=== PATIENT | male | born 1970 ===

== ENCOUNTER 2016-12-15 11:23 | Emergency (ER) | payer OTHER ==
[2016-12-15 12:01] VITALS: BMI 40.7
[2016-12-15 12:09] VITALS: O2SAT 98
--- NOTE | 2016-12-15 12:51 | C.PDOC ---
History Of Present Illness 46 Y/O MALE PRESENTS WITH MULTIPLE COMPLAINTS: SUBJECTIVE FEVER AND FRONTAL HEADACHE FOR 3 DAYS. DENIES CONGESTION OR SORE THROAT. DENIES HX MIGRAINE. NOTES TOOK IBUPROFEN LAST NIGHT WITH LIMITED RELIEF. PT ALSO C/O COUGH AND GENERAL MYALGIAS. SECOND COMPLAINT: PT ALSO REQUESTING EVALUATION REGARDING "ABNORMAL LABS" TAKEN 11/21/16. NOTES HE WAS CALLED TWICE REGARDING LABS, BUT WAS UNABLE FOLLOW UP. STATES HE DOES NOT KNOW WHO CALLED REGARDING LABS. DENIES HISTORY OF ASTHMA OR SMOKING. NO OTHER ASSOC SX. EXAM NEG Time Seen by Provider: 12/15/16 12:26 Chief Complaint (Nursing): Abnormal Labs History Per: Patient History/Exam Limitations: no limitations Onset/Duration Of Symptoms: Days Current Symptoms Are (Timing): Still Present Reports Recently: Treated By A Physician Recent travel outside of the [place]: No Past Medical History Reviewed: Historical Data, Nursing Documentation, Vital Signs Vital Signs: Last Vital Signs Temp 98.0 F 12/15/16 12:02 Pulse 81 12/15/16 12:02 Resp 20 12/15/16 12:02 BP 149/96 H 12/15/16 12:02 Pulse Ox 98 12/15/16 12:51 - Medical History PMH: HTN, Hypercholesterolemia Family History: States: Unknown Family Hx - Social History Hx Alcohol Use: Yes Hx Substance Use: No - Immunization History Hx Tetanus Toxoid Vaccination: No Hx Influenza Vaccination: Yes Hx Pneumococcal Vaccination: No Review Of Systems Except As Marked, All Systems Reviewed And Found Negative. Constitutional: Positive for: Fever (SUBJ.), Malaise ENT: Negative for: Throat Pain Cardiovascular: Negative for: Chest Pain, Palpitations Respiratory: Positive for: Cough. Negative for: Shortness of Breath, Wheezing Gastrointestinal: Negative for: Nausea, Vomiting, Abdominal Pain, Diarrhea Musculoskeletal: Negative for: Neck Pain Skin: Negative for: Rash Neurological: Positive for: Headache Physical Exam - Physical Exam Appears: Non-toxic, No Acute Distress Skin: Normal Color, Warm, Dry Head: Atraumatic, Normacephalic, No Tenderness Eye(s): bilateral: Normal Inspection, PERRL, EOMI Ear(s): Bilateral: Normal Nose: Normal Oral Mucosa: Moist Throat: Normal, No Erythema, No Exudate, No Drooling Neck: Supple Chest: Symmetrical Cardiovascular: Rhythm Regular, No Murmur Respiratory: Normal Breath Sounds, No Rales, No Rhonchi, No Wheezing Gastrointestinal/Abdominal: Soft, No Tenderness, No Guarding, No Rebound Back: Normal Inspection Extremity: Normal ROM, Capillary Refill (< 2 SEC. ) Neurological/Psych: Oriented x3, Normal Speech, Normal Cognition ED Course And Treatment O2 Sat by Pulse Oximetry: 98 (RA) Pulse Ox Interpretation: Normal - Radiology CXR: Interpreted by Me CXR Interpretation: Yes: No Acute Disease Progress - Re-Evaluation Re-evaluation Note: 12/15/16 12:50 TREATED WITH TYLENOL. CXR ORDERED. Disposition Counseled Patient/Family Regarding: Studies Performed, Diagnosis, Need For Followup - Disposition Referrals: [facility] [Outside] [facility] [Outside] Disposition: HOME/ ROUTINE Disposition Time: 13:43 Condition: IMPROVED Prescriptions: Acetaminophen [Tylenol Extra Strength] 2 tab PO Q6 #30 tablet Instructions: Viral Syndrome (ED), Acute Headache (ED) Forms: Work/School/Gym Excuse Print Language: JORDANIAN - Clinical Impression Clinical Impression: Headache, Viral syndrome - Scribe Statement The provider has reviewed the documentation as recorded by the Scribjose j Rizvi All medical record entries made by the Mynoribjose j were at my direction and personally dictated by me. I have reviewed the chart and agree that the record accurately reflects my personal performance of the history, physical exam, medical decision making, and the department course for this patient. I have also personally directed, reviewed, and agree with the discharge instructions and disposition.
--- NOTE | 2016-12-15 13:36 | RAD ---
HISTORY: COUGH COMPARISON: None available. TECHNIQUE: Chest PA and lateral FINDINGS: Examination limited by habitus. LUNGS: No focal consolidation. Please note that chest x-ray has limited sensitivity for the detection of pulmonary masses. PLEURA: No significant pleural effusion identified. No definite pneumothorax . CARDIOVASCULAR: Cardiomegaly. Ectatic aorta. OSSEOUS STRUCTURES: Degenerative changes. VISUALIZED UPPER ABDOMEN: Unremarkable. OTHER FINDINGS: None. IMPRESSION: No focal consolidation, significant pleural effusion, or definite pneumothorax identified.
[2016-12-15 13:55] VITALS: BP 129/84; PULSE 90; RESP 18; TEMP 99
== END 2016-12-15 13:55 | disposition home or self-care (01) ==
LOC: C.ER 11:23
DX: B34.9 Viral infection, unspecified (principal); R51 Headache
CPT/HCPCS: 71020; 96372; 99283; J1885

== ENCOUNTER 2018-09-02 10:12 | Emergency (ER) | payer OTHER ==
[2018-09-02 10:13] VITALS: BMI 34.8
[2018-09-02 10:34] VITALS: RESP 18
--- NOTE | 2018-09-02 10:50 | C.PDOC ---
History Of Present Illness 48 year old male presents to ED with complaint of persistent right forehead and samia-orbital pain s/p a fall 2 weeks ago. Patient also states he has been experiencing intermittent epistaxis from the right nare for the past week. He states he only experiences epistaxis in the morning. Patient states he accidentally fell and struck his face. He denies syncope, nausea, vomiting, vision changes, dizziness, and ear discharge. PERSIST R FOREHEAD/PERIORB PAIN SP FALL 2 WKS AGO, INTERMIT R EPISTAXIS X 1 WEEK. PS ACCID FELL AND STRUCK FACE. NO LOC, NV, VISION CHANGE, DIZZINESS. R EPISTAXIS ONLY IN MORNING. NO EAR DISCHARGE. EXAM NAD HEENT EOMI; NOSE CLEAR NO ACTIVE BLEED, HEMATOMA; EARS WNL; HEALING ABRASION R PERIORB; NO FACIAL SWELL, DEFORM. MIN TEND LAT 1/3 R EYEBROW NECK SUPPLE NEURO INTACT GAIT WNL - HPI Time Seen by Provider: 09/02/18 10:41 Chief Complaint (Nursing): Trauma History Per: Patient History/Exam Limitations: no limitations Onset/Duration Of Symptoms: Other (2 weeks) Location Of Injury: Right: Head (forehead and samia-orbital area) - Fall Fall:Prior To Injury: Tripped Past Medical History Reviewed: Historical Data, Nursing Documentation, Vital Signs Vital Signs: Last Vital Signs Temp 97.9 F 09/02/18 10:28 Pulse 57 L 09/02/18 10:28 Resp 18 09/02/18 10:28 BP 164/86 H 09/02/18 10:28 Pulse Ox 97 09/02/18 10:28 - Medical History PMH: Asthma, HTN, Hypercholesterolemia Surgical History: No Surg Hx Family History: States: Unknown Family Hx - Social History Hx Alcohol Use: Yes Hx Substance Use: No - Immunization History Hx Tetanus Toxoid Vaccination: No Hx Influenza Vaccination: No Hx Pneumococcal Vaccination: No Review Of Systems Constitutional: Positive for: Other (right sided forehead/periorbital pain). Negative for: Fever, Chills, Weakness Eyes: Negative for: Vision Change ENT: Positive for: Other (epistaxis from the right nare). Negative for: Ear Discharge Gastrointestinal: Negative for: Nausea, Vomiting Musculoskeletal: Negative for: Back Pain Neurological: Negative for: Weakness, Numbness, Dizziness Physical Exam - Physical Exam Appears: Well, Non-toxic, No Acute Distress Head: Atraumatic, Normacephalic, Tenderness (mild tenderness to lateral 1/3 right eyebrow), No Swelling, Abrasion (healing abrasion on the right periorbital), No Other (deformity) Eye(s): bilateral: EOMI Ear(s): Bilateral: Normal Nose: Normal, No Epistaxis, No Septal Hematoma Neck: Normal ROM, Supple Chest: Symmetrical, No Deformity Cardiovascular: Rhythm Regular, Murmur Respiratory: No Accessory Muscle Use, No Rales, No Rhonchi, No Wheezing, Other (NARD) Gastrointestinal/Abdominal: Soft, No Tenderness Extremity: Capillary Refill (<2 seconds) Extremity: Bilateral: Atraumatic, Normal Color And Temperature Pulses: Left Radial: Normal, Right Radial: Normal Neurological/Psych: Oriented x3, Normal Speech, Normal Cognition Gait: Steady (WNL) ED Course And Treatment O2 Sat by Pulse Oximetry: 97 (RA) - CT Scan/US Maxillofacial CT Other Rad Studies (CT/US): Interpreted By Me, Read By Radiologist CT/US Interpretation: Accession No. : [id number]. Patient Name / ID : DECLAN TYSON / [id number]. Exam Date : 09/02/2018 11:16:14 ( Approved ). Study Comment : Sex / Age : M / 48Y. Creator : Shawna Holman. Dictator : Brigida Heredia MD. Decatizer : Air Hole Driller : Brigida Heredia MD. Approver2 : Report Date : 09/02/2018 11:23:59. My Comment : . Date of service: 09/02/2018. PROCEDURE: CT MAXILLOFACIAL BONES WITHOUT CONTRAST. HISTORY: R FACIAL TRAUMA; INTERMIT R EPISTAXIS. COMPARISON: None available. TECHNIQUE: Contiguous axial CT images of the maxillofacial bones were obtained. Coronal and sagittal reformats were generated. Radiation dose: Total exam DLP = 798.32 mGy-cm. This CT exam was performed using one or more of the following dose reduction techniques: Automated exposure control, adjustment of the mA and/or kV according to patient size, and/or use of iterative reconstruction technique. FINDINGS: NASAL BONES: There is an acute mildly displaced fracture in the right nasal bone and acute comminuted nondisplaced fracture in the left nasal bone. Mild nasal soft tissue swelling. ORBITS: No acute orbital fracture. The globes are symmetric without evidence for hemorrhage, emphysema or lens dislocation. No radiopaque foreign body. PARANASAL SINUSES/ MASTOIDS: There is mild polypoid mucosal thickening in the maxillary sinuses, worse on the left. There is also mild mucosal thickening in the left poss tear ethmoid air cells. The remaining visualized paranasal sinuses are predominantly clear. Mastoid air cells are clear. MAXILLA: No acute maxillofacial fracture. MANDIBLE/ TEMPOROMANDIBULAR JOINTS: No acute fracture or dislocation. SKULL BASE: Unremarkable. TEMPORAL BONES: Middle ears and mastoid grossly unremarkable. OTHER FINDINGS: None. IMPRESSION: 1. Acute mildly displaced fracture in the right nasal bone and acute comminuted nondisplaced fracture in the left nasal bone. Mild nasal soft tissue swelling. 2. No acute orbital or maxillofacial fracture. Head CT Other Rad Studies (CT/US): Interpreted By Me, Read By Radiologist CT/US Interpretation: Accession No. : [id number]. Patient Name / ID : DECLAN TYSON / [id number]. Exam Date : 09/02/2018 11:12:18 ( Approved ). Study Comment : Sex / Age : M / 48Y. Creator : Shawna Holman. Dictator : Brigida Heredia MD. Decatizer : Air Hole Driller : Brigida Heredia MD. Approver2 : Report Date : 09/02/2018 11:23:51. My Comment : . Date of service: 09/02/2018. PROCEDURE: CT HEAD WITHOUT CONTRAST. HISTORY: TRAUMA 2 WKS AGO. COMPARISON: None available. TECHNIQUE: Axial computed tomography images were obtained through the head/brain without intravenous contrast. Radiation dose: Total exam DLP = 1084.73 mGy-cm. This CT exam was performed using one or more of the following dose reduction techniques: Automated exposure control, adjustment of the mA and/or kV according to patient size, and/or use of iterative reconstruction technique. FINDINGS: HEMORRHAGE: No intracranial hemorrhage. BRAIN: Luis-white matter differentiation is preserved. There is a 1.3 x 1.9 x 2.0 cm CSF density lesion in the right paramedian posterior fossa without significant mass effect, vasogenic edema or midline shift. There is no mass effect or abnormal extra-axial fluid collection. There is no territorial infarction. The midline sagittal structures are normal. VENTRICLES: The ventricles are normal in size, shape and configuration. CALVARIUM: There is no calvarial fracture or extracranial soft tissue swelling. PARANASAL SINUSES: Predominantly clear. MASTOID AIR CELLS: Predominantly clear. OTHER FINDINGS: None. IMPRESSION: No acute intracranial abnormality. 1.3 x 1.9 x 2.0 cm CSF density mass in the right paramedian posterior fossa statistically most compatible with an arachnoid cyst. No significant mass effect or midline shift. Progress Note: Maxillofacial CT and Head CT ordered for patient. Progress - Re-Evaluation Re-evaluation Note: 09/02/18 11:48 D/W DR RAMOS AWARE OF ER FINDINGS. AFRIN X 3 DAYS 2 BID, FU OFFICE DR RAMOS OR VINICIO NEXT WEEK - Data Reviewed Data Reviewed: Diagnostic imaging - Continuity of Care Discussed pt. case with senior financial consultant/specialty: Otolaryngology Disposition Counseled Patient/Family Regarding: Studies Performed, Diagnosis, Need For Followup, Rx Given - Disposition Referrals: Ernst Ramos MD [Staff Provider] - Juanito Harding MD [Staff Provider] - [facility] [Outside] [facility] [Outside] Disposition: HOME/ ROUTINE Disposition Time: 11:50 Condition: GOOD Prescriptions: Oxymetazoline 0.05% [Afrin 0.05%] 2 spr ALEX Q12H #1 bottle Instructions: Nose Fracture (DC), Nosebleeds (DC) Forms: [employer] (Persian), Work Excuse Print Language: CROATIAN - Clinical Impression Clinical Impression: Nasal bone fractures, Epistaxis - Scribe Statement The provider has reviewed the documentation as recorded by the Scribe (Nikki Koo) All medical record entries made by the Scribe were at my direction and personally dictated by me. I have reviewed the chart and agree that the record accurately reflects my personal performance of the history, physical exam, medical decision making, and the department course for this patient. I have also personally directed, reviewed, and agree with the discharge instructions and disposition.
--- NOTE | 2018-09-02 11:31 | CT ---
Date of service: 09/02/2018 PROCEDURE: CT HEAD WITHOUT CONTRAST. HISTORY: TRAUMA 2 WKS AGO COMPARISON: None available. TECHNIQUE: Axial computed tomography images were obtained through the head/brain without intravenous contrast. Radiation dose: Total exam DLP = 1084.73 mGy-cm. This CT exam was performed using one or more of the following dose reduction techniques: Automated exposure control, adjustment of the mA and/or kV according to patient size, and/or use of iterative reconstruction technique. FINDINGS: HEMORRHAGE: No intracranial hemorrhage. BRAIN: Luis-white matter differentiation is preserved. There is a 1.3 x 1.9 x 2.0 cm CSF density lesion in the right paramedian posterior fossa without significant mass effect, vasogenic edema or midline shift. There is no mass effect or abnormal extra-axial fluid collection. There is no territorial infarction. The midline sagittal structures are normal. VENTRICLES: The ventricles are normal in size, shape and configuration. CALVARIUM: There is no calvarial fracture or extracranial soft tissue swelling. PARANASAL SINUSES: Predominantly clear. MASTOID AIR CELLS: Predominantly clear. OTHER FINDINGS: None. IMPRESSION: No acute intracranial abnormality. 1.3 x 1.9 x 2.0 cm CSF density mass in the right paramedian posterior fossa statistically most compatible with an arachnoid cyst. No significant mass effect or midline shift.
--- NOTE | 2018-09-02 11:39 | CT ---
Date of service: 09/02/2018 PROCEDURE: CT MAXILLOFACIAL BONES WITHOUT CONTRAST HISTORY: R FACIAL TRAUMA; INTERMIT R EPISTAXIS COMPARISON: None available. TECHNIQUE: Contiguous axial CT images of the maxillofacial bones were obtained. Coronal and sagittal reformats were generated. Radiation dose: Total exam DLP = 798.32 mGy-cm. This CT exam was performed using one or more of the following dose reduction techniques: Automated exposure control, adjustment of the mA and/or kV according to patient size, and/or use of iterative reconstruction technique. FINDINGS: NASAL BONES: There is an acute mildly displaced fracture in the right nasal bone and acute comminuted nondisplaced fracture in the left nasal bone. Mild nasal soft tissue swelling ORBITS: No acute orbital fracture. The globes are symmetric without evidence for hemorrhage, emphysema or lens dislocation. No radiopaque foreign body. PARANASAL SINUSES/ MASTOIDS: There is mild polypoid mucosal thickening in the maxillary sinuses, worse on the left. There is also mild mucosal thickening in the left poss tear ethmoid air cells. The remaining visualized paranasal sinuses are predominantly clear. Mastoid air cells are clear. MAXILLA: No acute maxillofacial fracture. MANDIBLE/ TEMPOROMANDIBULAR JOINTS: No acute fracture or dislocation. SKULL BASE: Unremarkable. TEMPORAL BONES: Middle ears and mastoid grossly unremarkable. OTHER FINDINGS: None. IMPRESSION: 1. Acute mildly displaced fracture in the right nasal bone and acute comminuted nondisplaced fracture in the left nasal bone. Mild nasal soft tissue swelling. 2. No acute orbital or maxillofacial fracture.
[2018-09-02 12:35] VITALS: BP 152/80; PULSE 61; TEMP 98.1; O2SAT 100
== END 2018-09-02 12:35 | disposition home or self-care (01) ==
LOC: C.ER 10:12
DX: S02.2XXA Fracture of nasal bones, initial encounter for closed fracture (principal); W01.0XXA Fall on same level from slipping, tripping and stumbling without subsequent striking against object, initial encounter; R04.0 Epistaxis